=== PATIENT | male | born 2000 | race Caucasian/White ===

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

== ENCOUNTER → 2021-01-30 | Outpatient (CLI) | payer BC ==
[~2021-01-30] MED LIST changes: +VENTOLIN0.09 MG IH
== END ==
LOC: COL.PUL
DX: J45.998 Other asthma (principal)

== ENCOUNTER 2022-07-08 17:57 | Emergency (ER) | payer BC ==
[~2022-07-08] VITALS: Ht 167.6 cm; Wt 89.5 kg
[2022-07-08 18:13] VITALS: TEMP 97.5
[2022-07-08 18:35] LABS: BASO # 0.1 K/mm3 (0.0-0.2); BASO % 0.5 % (0.0-2.0); EOS # 0.8 K/mm3 (0.0-0.7); EOS % 8.4 % (0.0-4.0); GRAN # 5.9 K/mm3 (1.4-6.5); HEMATOCRIT 43.5 % (42.0-52.0); HEMOGLOBIN 14.9 g/dl (13.5-18.0); LYMPH # 1.9 K/mm3 (1.2-3.4); LYMPH % 19.9 % (20.0-51.0); MEAN CELL VOLUME 83 fl (80.0-100.0); MEAN CORPUSCULAR HEMOGLOBIN 28 pg (27-31); MEAN CORPUSCULAR HGB CONC 34 g/dl (33.0-37.0); MEAN PLATELET VOLUME 9.2 fl (7.4-10.4); MONO # 0.9 K/mm3 (0.1-0.6); PLATELET COUNT 312 K/mm3 (130-400); RED BLOOD COUNT 5.26 M/mm3 (4.20-5.60); REDCELL DISTRIBUTION WIDTH-CV 12.8 % (11.5-14.5)
[2022-07-08] MEDS ORDERED: FLOVENT 220MCG7.9 GM IH (18:46)
[2022-07-08] MEDS ORDERED: RESTORIL 1515 MG/CAP PO (18:46)
[2022-07-08 18:51] LABS: ALBUMIN 4.4 gm/dL (3.5-5.0); BILIRUBIN,TOTAL 0.4 mg/dL (0.2-1.2); CALCIUM 9.7 mg/dL (8.4-10.2); CREATININE, serum 0.83 mg/dL (0.72-1.25); POTASSIUM 4.2 mmol/L (3.5-4.5); TOTAL PROTEIN 7.5 gm/dL (6.2-8.1)
[2022-07-08 21:06] VITALS: BP 114/71
[2022-07-08] MEDS ORDERED: ZOFRAN ODT4 MG PO (21:23)
[2022-07-08 21:34] VITALS: PULSE 64
== END 2022-07-08 21:34 | disposition home or self-care (01) ==
LOC: COL.ER 17:57
PROVIDERS: Personal Emergency Response Attendant
DX: R10.84 Generalized abdominal pain (principal); R11.10 Vomiting, unspecified; Z90.49 Acquired absence of other specified parts of digestive tract
CPT/HCPCS: J1790; J2270; J7030; Q9967